=== PATIENT | male | born 1965 | race Caucasian/White ===

== ENCOUNTER 2016-10-31 08:04 | Emergency (ER) | payer BC ==
[2016-10-31 08:18] VITALS: BP 121/73
--- NOTE | 2016-10-31 09:00 | UC ---
Abdominal Pain Male HPI - HPI Summary HPI Summary: 51 yo mamel with onset yesterday of nausea/anorexia/burping/diarrhea (>10X) feverish mylagias STEPHENSON no abd pain no UTI symptoms recent trip to [place] a few days ago ate at a fair no blood in diarrhea - History of Current Complaint Chief Complaint: UCGI Stated Complaint: FEVER,GI Time Seen by Provider: 10/31/16 08:41 Onset/Duration: Gradual Onset, Lasting Hours Timing: Constant Severity Initially: Moderate Severity Currently: Moderate Pain Intensity: 3 - headache Pain Scale Used: 0-10 Numeric Location: Other - no abd pain Character: Not Applicable Associated Signs And Symptoms: Positive: Fever - inna, Back Pain - achy and predated onset of diarrhea, Decreased Appetite, Nausea, Diarrhea. Negative: Diaphoresis, Cough, Chest Pain, Dizzy, Constipation, Blood in Stool, Urinary Symptoms, Vomiting, Penile Discharge - Risk Factors Testicular Torsion: Negative - Allergies/Home Medications Allergies/Adverse Reactions: Allergies Allergy/AdvReac Type Severity Reaction Status Date / Time No Known Allergies Allergy Verified 10/31/16 08:18 Home Medications: Home Medications Fexofenadine HCl [Allergy 24-Hr] 180 mg PO DAILY 10/31/16 [History Confirmed ] amLODIPine TAB* [Norvasc 5 mg TAB*] 10 mg PO DAILY 10/31/16 [History Confirmed 10/31/16] PMH/Surg Hx/FS Hx/Imm Hx Previously Healthy: Yes Cardiovascular History: Hypertension - Surgical History Surgical History: Yes Surgery Procedure, Year, and Place: sugery on L thumb, tonsillectomy - Family History Known Family History: Positive: Hypertension - Social History Alcohol Use: Occasionally Substance Use Type: None Smoking Status (MU): Never Smoked Tobacco - Immunization History Most Recent Influenza Vaccination: current Review of Systems Constitutional: Fever - inna, Fatigue Skin: Negative Eyes: Negative ENT: Negative Respiratory: Negative Cardiovascular: Negative Gastrointestinal: Diarrhea, Nausea Genitourinary: Negative Motor: Negative Neurovascular: Negative Musculoskeletal: Myalgia Neurological: Negative Psychological: Negative All Other Systems Reviewed And Are Negative: Yes Physical Exam Triage Information Reviewed: Yes Appearance: Well-Appearing, No Pain Distress, Well-Nourished Vital Signs: Initial Vital Signs Temp 97.3 F 10/31/16 08:09 Pulse 75 10/31/16 08:09 Resp 16 10/31/16 08:09 BP 121/73 10/31/16 08:09 Pulse Ox 98 10/31/16 08:09 Vital Signs Reviewed: Yes Eyes: Positive: Conjunctiva Clear ENT: Positive: Hearing grossly normal. Negative: Pharyngeal erythema, Nasal congestion, Nasal drainage, TMs normal, Tonsillar swelling, Tonsillar exudate, Trismus, Muffled/hoarse voice Neck: Positive: Supple, Nontender, No Lymphadenopathy Respiratory: Positive: Lungs clear, Normal breath sounds, No respiratory distress, No accessory muscle use Cardiovascular: Positive: RRR, No Murmur Abdomen Description: Positive: Nontender, No Organomegaly, Soft. Negative: CVA Tenderness (R), CVA Tenderness (L), Distended, Guarding, Hernia @, Hepatomegaly , McBurney's Point Tenderness, Peritoneal Signs, Pulsatile Mass, Splenomegaly Bowel Sounds: Positive: Present, Hyperactive Musculoskeletal: Positive: ROM Intact, No Edema Neurological: Positive: Alert Psychological Exam: Normal Skin Exam: Normal Abd Pain Male Course/Dx - Differential Dx/Clinical Impression Provider Diagnoses: acute diarrhea. ?food poisoning Discharge - Discharge Plan Condition: Stable Disposition: HOME Prescriptions: Ciprofloxacin TAB* [Cipro 500 MG TAB*] 500 mg PO BID #6 tab Ondansetron TAB* [Zofran Tab*] 4 mg PO Q6H PRN #10 tab PRN Reason: Nausea Patient Education Materials: Acute Diarrhea (ED) Referrals: Epi Chin MD [Primary Care Provider] - If Needed Additional Instructions: bring in stools for studies rest fluids zofran for nausea to ER for temp >101 abdominal pain vomiting recheck in 1-2 days if not better
== END 2016-10-31 09:06 | disposition home or self-care (01) ==
LOC: UCCORT 08:04
DX: R19.7 Diarrhea, unspecified (principal); R05 Cough; R11.0 Nausea; I10 Essential (primary) hypertension
CPT/HCPCS: 81003; 99202; G0463

== ENCOUNTER 2018-03-04 09:48 | Emergency (ER) | payer BC ==
[2018-03-04 10:03] VITALS: BP 139/84
--- NOTE | 2018-03-04 10:28 | UC ---
UC General HPI - HPI Summary HPI Summary: began as cold that went right to chest x 6 days. now suddenly much worse with cough and chest congestion. no cp or fever. hx exercise asthma. - History of Current Complaint Chief Complaint: UCRespiratory Stated Complaint: COUGH Time Seen by Provider: 03/04/18 10:23 Hx Obtained From: Patient Onset/Duration: Gradual Onset Timing: Constant Pain Intensity: 2 Associated Signs & Symptoms: Positive: Cough. Negative: Chest Pain, Fever - Allergy/Home Medications Allergies/Adverse Reactions: Allergies Allergy/AdvReac Type Severity Reaction Status Date / Time No Known Allergies Allergy Verified 03/04/18 09:57 Home Medications: Home Medications Pseudoephedrine HCL ER TAB* [Sudafed 12 Hour*] 120 mg PO BID PRN 03/04/18 [ History Confirmed 03/04/18] guaiFENesin ER TAB [Mucinex*] 600 mg PO BID PRN 03/04/18 [History Confirmed ] PMH/Surg Hx/FS Hx/Imm Hx Cardiovascular History: Hypertension Respiratory History: Asthma - Surgical History Surgical History: Yes Surgery Procedure, Year, and Place: sugery on L thumb, tonsillectomy. R shoulder - Family History Known Family History: Positive: Hypertension - Social History Occupation: Employed Full-time Lives: With Family Alcohol Use: Occasionally Substance Use Type: None Smoking Status (MU): Never Smoked Tobacco - Immunization History Most Recent Influenza Vaccination: current Vaccination Up to Date: Yes Review of Systems All Other Systems Reviewed And Are Negative: Yes Constitutional: Positive: Negative Skin: Positive: Negative Eyes: Positive: Negative ENT: Positive: Sinus Congestion Respiratory: Positive: Cough Cardiovascular: Positive: Negative Gastrointestinal: Positive: Negative Genitourinary: Positive: Negative Motor: Positive: Negative Neurovascular: Positive: Negative Musculoskeletal: Positive: Negative Neurological: Positive: Negative Psychological: Positive: Negative Is Patient Immunocompromised?: No Physical Exam Triage Information Reviewed: Yes Appearance: Well-Appearing Vital Signs: Initial Vital Signs Temp 98.1 F 03/04/18 09:59 Pulse 76 03/04/18 09:59 Resp 18 03/04/18 09:59 BP 139/84 03/04/18 09:59 Pulse Ox 97 03/04/18 09:59 Vital Signs Reviewed: Yes Eyes: Positive: Conjunctiva Clear ENT: Positive: Pharynx normal, Nasal congestion, TMs normal. Negative: Nasal drainage Neck: Positive: Supple, Nontender, No Lymphadenopathy Respiratory: Positive: No respiratory distress, Decreased breath sounds, Other: - bronchospastic-congested cough. Cardiovascular: Positive: RRR, No Murmur Abdomen Description: Positive: Nontender, No Organomegaly, Soft Bowel Sounds: Positive: Present Musculoskeletal: Positive: ROM Intact Neurological: Positive: Alert Psychological: Positive: Age Appropriate Behavior Skin Exam: Normal Course/Dx - Course Course Of Treatment: non toxic, no concern for pneumonia - Differential Dx - Multi-Symptom Provider Diagnoses: URI, bronchitis, asthma flare Discharge - Sign-Out/Discharge Documenting (check all that apply): Patient Departure All imaging exams completed and their final reports reviewed: No Studies - Discharge Plan Condition: Stable Disposition: HOME Prescriptions: Albuterol HFA INHALER* [Ventolin HFA Inhaler*] 2 puff INH Q6H #1 mdi Azithromycin TAB* [Zithromax TAB (Z-REYMUNDO) 250 mg #6 tabs] 2 tab PO .TODAY, THEN 1 DAILY #1 reymundo predniSONE TAB* [Deltasone 20 MG TAB*] 40 mg PO DAILY 5 Days #10 tab Patient Education Materials: Asthma (ED), Upper Respiratory Infection (DC) Referrals: Epi Chin MD [Primary Care Provider] - 7 Days - Billing Disposition and Condition Condition: STABLE Disposition: Home
== END 2018-03-04 10:34 | disposition home or self-care (01) ==
LOC: UCCORT 09:48
DX: J06.9 Acute upper respiratory infection, unspecified (principal); J40 Bronchitis, not specified as acute or chronic; J45.901 Unspecified asthma with (acute) exacerbation
CPT/HCPCS: 99212; G0463

== ENCOUNTER 2019-05-04 11:32 | Emergency (ER) | payer BC ==
[2019-05-04 12:55] VITALS: BP 128/62
--- NOTE | 2019-05-04 12:56 | UC ---
Respiratory Complaint HPI - HPI Summary HPI Summary: 54-year-old male presenting with nasal congestion and productive cough 10 days. Patient states the last 3 days he has experienced increasing sinus pressure and tenderness. States cough is now productive of clear sputum. Patient states cough much worse at night and causes SOB so he has to sleep in recliner. Denies sob currently. Notes mild wheezing as well. Denies n/v. Denies fever and chills. States h/o asthma but no longer has inhaler. States he feels as though he has needed one recently. Notes taking sudafed and delsym with minimal relief. - History of Current Complaint Stated Complaint: COUGH/CHEST CONGESTION Time Seen by Provider: 05/04/19 12:37 Hx Obtained From: Patient - Allergies/Home Medications Allergies/Adverse Reactions: Allergies Allergy/AdvReac Type Severity Reaction Status Date / Time No Known Allergies Allergy Verified 05/04/19 12:43 Home Medications: Home Medications Cbd Oil 25 mg PRN 05/04/19 [History] Melatonin 1 mg PO PRN 05/04/19 [History] PMH/Surg Hx/FS Hx/Imm Hx Cardiovascular History: Hypertension - Surgical History Surgical History: Yes Surgery Procedure, Year, and Place: sugery on L thumb, tonsillectomy. R shoulder - Family History Known Family History: Positive: Hypertension - Social History Alcohol Use: Occasionally Substance Use Type: None Smoking Status (MU): Never Smoked Tobacco - Immunization History Most Recent Influenza Vaccination: current Vaccination Up to Date: Yes Review of Systems All Other Systems Reviewed And Are Negative: Yes Constitutional: Positive: Negative. Negative: Fever, Chills ENT: Positive: Sinus Congestion, Sinus Pain/Tenderness. Negative: Sore Throat, Ear Ache Respiratory: Positive: Shortness Of Breath - at night, Cough - productive of clear sputum Cardiovascular: Positive: Negative Gastrointestinal: Positive: Negative Musculoskeletal: Negative: Myalgia Neurological: Positive: Headache Physical Exam Triage Information Reviewed: Yes Appearance: No Pain Distress, Ill-Appearing, Obese Vital Signs: Vital Signs (72 hours) 05/04/19 12:48 Temperature 98.1 F Pulse Rate 69 Respiratory 18 Rate Blood Pressure 128/62 (mmHg) O2 Sat by Pulse 98 Oximetry Vital Signs Reviewed: Yes Eyes: Positive: Conjunctiva Clear ENT: Positive: Hearing grossly normal, Pharyngeal erythema, Nasal congestion, Nasal drainage - PND, TMs normal, Sinus tenderness - maxillary, Uvula midline. Negative: Tonsillar swelling, Tonsillar exudate Neck exam: Normal Neck: Positive: Supple, Nontender, No Lymphadenopathy Respiratory Exam: Normal Respiratory: Positive: Lungs clear, Normal breath sounds, No respiratory distress, No accessory muscle use. Negative: Crackles, Rhonchi, Stridor, Wheezing Cardiovascular Exam: Normal Cardiovascular: Positive: RRR, No Murmur Neurological: Positive: Alert Psychological: Positive: Age Appropriate Behavior Skin Exam: Normal Respiratory Course/Dx - Course Course Of Treatment: Discussed sinusitis and acute bronchitis with patient. I treated patient with Augmentin for sinusitis and instructed to continue symptomatic treatment. Also prescribed albuterol inhaler and Tessalon Perles for cough and shortness of breath relief. Instructed to follow up with PCP if symptoms persist and to go to ED with any new or worsening symptoms. Patient voiced understanding and agreed with treatment plan. - Differential Dx/Diagnosis Differential Diagnosis/HQI/PQRI: Bronchitis, Sinusitis, Other - URI Provider Diagnosis: Sinusitis, Acute bronchitis with bronchospasm Discharge ED - Sign-Out/Discharge Documenting (check all that apply): Patient Departure All imaging exams completed and their final reports reviewed: No Studies - Discharge Plan Condition: Stable Disposition: HOME Prescriptions: Albuterol HFA INHALER* [Ventolin HFA Inhaler*] 1 - 2 puff INH Q4H PRN #1 mdi PRN Reason: Sob/Wheezing Amoxicillin/Clavulanate TAB* [Augmentin TAB 875*] 875 mg PO BID #14 tab Benzonatate CAP* [Tessalon 100 MG CAP*] 100 mg PO TID PRN #21 cap PRN Reason: Cough Patient Education Materials: Sinusitis (ED), Acute Bronchitis (ED) Referrals: Epi Chin MD [Primary Care Provider] - If Needed Additional Instructions: As discussed, take Augmentin for treatment of your sinus infection. You may continue use of Sudafed. You may also add a nasal saline spray or Flonase. Take the Tessalon Perles as prescribed to help alleviate coughing. You may continue with [id number] cough medications. Use albuterol inhaler as needed for shortness breath and wheezing. A humidifier or hot steam from the shower may also help alleviate symptoms. Follow up with your primary care provider if symptoms do not begin to resolve within 7 days. Go to the emergency room with any new or worsening symptoms. - Billing Disposition and Condition Condition: STABLE Disposition: Home
== END 2019-05-04 13:28 | disposition home or self-care (01) ==
LOC: UCCORT 11:32
DX: J32.9 Chronic sinusitis, unspecified (principal); J20.9 Acute bronchitis, unspecified; I10 Essential (primary) hypertension
CPT/HCPCS: 99212; G0463